=== PATIENT | male | born 1995 | race African-American/Black ===

== ENCOUNTER 2024-04-26 18:56 | Emergency (ER) | payer MEDICAID ==
[2024-04-26 19:44] LABS: BASOPHILS PERCENT AUTO 0.8 % (0.3-3.8); EOSINOPHILS ABSOLUTE AUTO 0.2 x10-3/uL (0.0-0.6); EOSINOPHILS PERCENT AUTO 4.9 % (0.1-6.8); HEMATOCRIT 39.7 % (38.3-50.1); HEMOGLOBIN 12.8 g/dL (12.9-17.7); LYMPHOCYTES PERCENT AUTO 45.4 % (15.8-45.3); MEAN CORPUSCULAR HEMOGLOBIN 25.9 pg (27.0-33.3); MEAN CORPUSCULAR HGB CONC 32.2 g/dL (28.7-35.3); MEAN CORPUSCULAR VOLUME 80.4 fL (80.8-98.7); MEAN PLATELET VOLUME 7.8 fL (6.7-11.0); MONOCYTES ABSOLUTE AUTO 0.4 x10-3/uL (0.0-1.2); MONOCYTES PERCENT AUTO 8.1 % (5.5-15.2); NEUTROPHILS ABSOLUTE AUTO 1.8 x10-3/uL (1.7-6.9); NEUTROPHILS PERCENT AUTO 40.8 % (40.3-71.8); PLATELET COUNT,PLT 247 x10(3)uL (117-477); RED BLOOD CELL COUNT 4.93 x10(6)uL (3.90-5.90); RED CELL DISTRIBUTION WIDTH 13.9 % (12.4-15.0); WHITE BLOOD CELL COUNT,WBC 4.4 x10-3/uL (3.2-10.1)
[2024-04-26 19:46] LABS: BLOOD UREA NITROGEN,BUN 8 mg/dL (7-18); BUN/CREATININE RATIO 6.7 (9-20); CALCIUM 8.7 mg/dL (8.6-10.2); CARBON DIOXIDE,CO2 27 mmol/L (21-32); CHLORIDE,CL 102 mmol/L (100-110); CREATININE 1.2 mg/dL (0.70-1.30); ESTIMATED GFR 84 mL/min (>60); GLUCOSE RANDOM 119 mg/dL (80-116); SODIUM,NA 138 mmol/L (135-145)
[2024-04-26 19:52] LABS: ALANINE AMINOTRANSFERASE,ALT 83 U/L (12-36); ALBUMIN 3.4 g/dL (3.5-5.2); ALKALINE PHOSPHATASE 65 IU/L (56-112); ASPARTATE AMNIOTRANSFERASE,AST 40 IU/L (5-25); BILIRUBIN TOTAL 0.3 mg/dL (0.1-1.3); PROTEIN TOTAL,TP 6.9 g/dL (6.0-8.0)
[2024-04-26 19:58] LABS: TROPONIN I 4.3 pg/mL (4.0-60.3)
== END 2024-04-26 21:30 | disposition home or self-care (01) ==
LOC: FB.ED 18:56
DX: R60.0 Localized edema (principal); Z79.899 Other long term (current) drug therapy
CPT/HCPCS: 36415; 71046; 80053; 83880; 84484; 85025; 85379; 99284